=== PATIENT | female | born 1970 | race Hispanic/Latino ===

== ENCOUNTER → 2024-10-06 | Day surgery (SDC) | payer OTHER ==
[~2024-10-06] MED LIST: AMLODIPINE BESYL5 MG PO; ASHWAGANDHA62.5 MG PO; BENZTROPINE MESY2 MG PO; BUSPIRONE HCL10 MG PO; CRESTOR40 MG PO; DIVALPROEX SOD250 MG PO; FAMOTIDINE20 MG PO; FENTANYL CITRATE/PF 100MCG/2 ML INJ ONE; FLAXSEED OIL1000 MG PO; GLIPIZIDE ER5 MG PO; GLYCOPYRROLATE INJ 0.2 MG/ML VIAL ONE; LIDOCAINE HCL 2% LOCAL INJ 5 ML SDV VIAL INJ ONE; MAGNESIUM OXID400 MG PO; MELOXICAM7.5 MG PO; OMEGA 3 1,0001 EACH PO; OREGANO OIL 501 EACH PO; PANTOPRAZOLE SO40 MG PO; PROPOFOL IV EMULSION 10 MG/ML 20 ML VIAL ONE; QUETIAPINE FUMA25 MG PO; SOURSOP PO; VIT D3-VIT K21 EACH PO; [UNRECOGNIZED DRUG - OTHER] PO; [UNRECOGNIZED DRUG - OTHER] SC
[2024-10-06] MEDS: LACTATED RINGER'S 1,000 ML ONE (11:32)
[2024-10-06 13:10] VITALS: TEMP 98
[2024-10-06 13:55] VITALS: BP 125/87; PULSE 66; RESP 16; O2SAT 96
== END | disposition home or self-care (01) ==
LOC: ENDO 10:55
PROVIDERS: ATTEND Internal Medicine Gastroenterology
DX: K29.50 Unspecified chronic gastritis without bleeding (principal); B96.81 Helicobacter pylori [H. pylori] as the cause of diseases classified elsewhere; K22.2 Esophageal obstruction; K31.89 Other diseases of stomach and duodenum; K21.9 Gastro-esophageal reflux disease without esophagitis; Z86.0100 Personal history of colon polyps, unspecified; K76.0 Fatty (change of) liver, not elsewhere classified; E11.9 Type 2 diabetes mellitus without complications; J43.9 Emphysema, unspecified; I10 Essential (primary) hypertension; Z71.89 Other specified counseling; E78.5 Hyperlipidemia, unspecified; F31.9 Bipolar disorder, unspecified; F20.9 Schizophrenia, unspecified; F41.9 Anxiety disorder, unspecified; G89.29 Other chronic pain; F17.210 Nicotine dependence, cigarettes, uncomplicated; F17.290 Nicotine dependence, other tobacco product, uncomplicated; Z71.6 Tobacco abuse counseling; Z01.810 Encounter for preprocedural cardiovascular examination; Z79.1 Long term (current) use of non-steroidal anti-inflammatories (NSAID); Z79.84 Long term (current) use of oral hypoglycemic drugs; Z79.4 Long term (current) use of insulin; Z79.899 Other long term (current) drug therapy; Z68.32 Body mass index [BMI] 32.0-32.9, adult; Z71.3 Dietary counseling and surveillance; Z80.0 Family history of malignant neoplasm of digestive organs
CPT/HCPCS: 36415; 43239; 43450; 82948; 93005; J2003; J2470; J2704; J3010; J7121

== ENCOUNTER → 2024-10-28 | Outpatient (REF) | payer OTHER ==
[~2024-10-28] MED LIST changes: -FENTANYL CITRATE/PF 100MCG/2 ML INJ ONE; -GLYCOPYRROLATE INJ 0.2 MG/ML VIAL ONE; -LIDOCAINE HCL 2% LOCAL INJ 5 ML SDV VIAL INJ ONE; -PROPOFOL IV EMULSION 10 MG/ML 20 ML VIAL ONE
== END ==
LOC: US 07:38
PROVIDERS: ATTEND Nurse Practitioner
DX: R10.84 Generalized abdominal pain (principal); R10.11 Right upper quadrant pain
CPT/HCPCS: 76700